=== PATIENT | male | born 1985 | race Caucasian/White ===

== ENCOUNTER 2025-05-05 12:17 | Inpatient (IN) | payer OTHER ==
[~2025-05-05] VITALS: Ht 167.6 cm; Wt 99.8 kg
[2025-05-05 12:24] VITALS: O2SAT 99
[2025-05-05 12:53] LABS: BASOPHILS % 0.4 % (0.0-2.0); EOSINOPHILS % 2.5 % (0.0-5.0); HEMATOCRIT. 53.0 % (42.0-52.0); HEMOGLOBIN. 18.9 g/dL (14.0-18.0); LYMPHOCYTES % 35.7 % (20.0-50.0); MEAN PLATELET VOLUME 7.8 fl (7.4-10.4); MONOCYTES % 4.7 % (2.0-8.0); NEUTROPHILS % 56.7 % (40.0-76.0); PLATELET 196 x1000/uL (130-400); RED BLOOD CELL COUNT 5.97 mill/uL (4.7-6.1); RED CELL DISTRIBUTION WIDTH 12.5 % (11.6-14.6)
[2025-05-05 13:13] LABS: CREATININE 1.0 mg/dL (0.6-1.3)
[2025-05-05 13:14] LABS: UREA NITROGEN BLOOD 16 mg/dL (9-23)
[2025-05-05 13:48] LABS: ETHANOL BLOOD 456 mg/dL (<10)
[2025-05-05] MEDS: SODIUM CHLORIDE 0.9% 1,000 ML IV ONE (14:22)
[2025-05-05] MEDS: ACETAMINOPHEN 500MG TABLET PO ONE (14:22)
[2025-05-05 14:40] LABS: ASPARTATE AMINOTRANSFERASE 448 IU/L (<34); BILIRUBIN DIRECT 0.5 mg/dL (<=3.0); BILIRUBIN TOTAL 1.3 mg/dL (0.1-1.0); PROTEIN TOTAL 7.9 g/dL (6.0-8.3)
[2025-05-05 16:40] VITALS: BP 126/81; PULSE 98; RESP 21; TEMP 35.4728
[2025-05-05 20:00] VITALS: BP 129/78; PULSE 113; RESP 18; TEMP 36.8; O2SAT 97
[2025-05-05] MEDS ORDERED: MAGNESIUM/ALUMINUM HYDROXIDE/SIMETHICONE 30ML UDC PO PRN (21:15)
[2025-05-05] MEDS ORDERED: DOCUSATE SODIUM 100MG CAPSULE PO PRN (21:15)
[2025-05-05] MEDS: SODIUM CHLORIDE 0.9% 1,000 ML IV SCH (22:00)
[2025-05-05] MEDS ORDERED: NALOXONE HCL 0.4MG/ML VIAL IV PRN (22:00)
[2025-05-05] MEDS: ONDANSETRON HCL 4MG/2ML INJ IV PRN (22:52)
[2025-05-06] VITALS: BP 115/84; PULSE 87; RESP 20; TEMP 36.6; O2SAT 98
[2025-05-06 03:45] LABS: BASOPHILS % 0.7 % (0.0-2.0); EOSINOPHILS % 2.2 % (0.0-5.0); HEMATOCRIT. 49.0 % (42.0-52.0); HEMOGLOBIN. 17.3 g/dL (14.0-18.0); LYMPHOCYTES % 31.4 % (20.0-50.0); MEAN PLATELET VOLUME 8.0 fl (7.4-10.4); MONOCYTES % 8.0 % (2.0-8.0); NEUTROPHILS % 57.7 % (40.0-76.0); PLATELET 182 x1000/uL (130-400); RED BLOOD CELL COUNT 5.58 mill/uL (4.7-6.1); RED CELL DISTRIBUTION WIDTH 12.6 % (11.6-14.6)
[2025-05-06 03:59] LABS: CREATININE 0.8 mg/dL (0.6-1.3)
[2025-05-06 04:00] VITALS: BP 120/76; PULSE 89; RESP 18; TEMP 36.7; O2SAT 98
[2025-05-06 04:00] LABS: CREATINE KINASE MB FRACTION 16.3 ng/mL (0.5-3.6); TROPONIN I HIGH SENSITIVITY 9 ng/L (3.0-53); UREA NITROGEN BLOOD 17 mg/dL (9-23)
[2025-05-06 04:02] LABS: PHOSPHORUS 3.5 mg/dL (2.5-4.9)
[2025-05-06] MEDS: ACETAMINOPHEN 325MG TABLET PO PRN (07:51)
[2025-05-06 08:00] VITALS: BP 126/81; PULSE 98; RESP 21; TEMP 37.8; O2SAT 98
[2025-05-06] MEDS ORDERED: MAGNESIUM/ALUMINUM HYDROXIDE/SIMETHICONE 30ML UDC PO PRN (10:45)
[2025-05-06] MEDS: HYDROCODONE/ACETAMINOPHEN 5/325MG TABLET PO PRN (10:59)
[2025-05-06 12:00] VITALS: BP 131/74; PULSE 83; RESP 18; TEMP 36.4; O2SAT 96
[2025-05-06 16:00] VITALS: BP 118/86; PULSE 84; RESP 18; TEMP 37; O2SAT 95
[2025-05-06 18:19] LABS: CREATINE KINASE MB FRACTION 17.5 ng/mL (0.5-3.6); TROPONIN I HIGH SENSITIVITY 13.0 ng/L (3.0-53)
[2025-05-06 20:00] VITALS: BP 156/98; PULSE 98; RESP 18; TEMP 37.6; O2SAT 98
[2025-05-06] MEDS ORDERED: CHLORDIAZEPOXIDE 5 MG CAPSULE PO SCH (23:45)
[2025-05-07] VITALS (7 sets, daily range): BP systolic 140–171; BP diastolic 87–115; PULSE 90–119; RESP 18–20; TEMP 36–37.2; O2SAT 97–100
[2025-05-07] MEDS: CHLORDIAZEPOXIDE 5 MG CAPSULE PO SCH (06:07)
[2025-05-07] MEDS: THIAMINE HCL 100MG TABLET PO SCH (08:49)
[2025-05-07] MEDS ORDERED: L10 PO (12:38)
[2025-05-07 13:56] LABS: BASOPHILS % 0.5 % (0.0-2.0); EOSINOPHILS % 1.9 % (0.0-5.0); HEMATOCRIT. 46.9 % (42.0-52.0); HEMOGLOBIN. 16.8 g/dL (14.0-18.0); LYMPHOCYTES % 22.4 % (20.0-50.0); MEAN PLATELET VOLUME 8.5 fl (7.4-10.4); MONOCYTES % 6.6 % (2.0-8.0); NEUTROPHILS % 68.6 % (40.0-76.0); PLATELET 165 x1000/uL (130-400); RED BLOOD CELL COUNT 5.37 mill/uL (4.7-6.1); RED CELL DISTRIBUTION WIDTH 12.4 % (11.6-14.6)
[2025-05-07 14:06] LABS: CREATININE 0.8 mg/dL (0.6-1.3); UREA NITROGEN BLOOD 7 mg/dL (9-23)
[2025-05-07 14:10] LABS: ASPARTATE AMINOTRANSFERASE 187 IU/L (<34); BILIRUBIN DIRECT 0.7 mg/dL (<=3.0); BILIRUBIN TOTAL 2.1 mg/dL (0.1-1.0); PROTEIN TOTAL 7.4 g/dL (6.0-8.3)
[2025-05-07] MEDS ORDERED: MAGNESIUM 2 G PREMIX 50 ML IV SCH (22:00)
[2025-05-08] VITALS: BP 143/99; PULSE 97; RESP 20; TEMP 36.4; O2SAT 98
[2025-05-08] MEDS ORDERED: LORAZEPAM 1MG TABLET PO PRN (00:18)
[2025-05-08 04:00] VITALS: BP 124/90; PULSE 101; RESP 20; TEMP 37.3; O2SAT 99
[2025-05-08] MEDS: MAGNESIUM 2 G PREMIX 50 ML IV SCH (06:38)
[2025-05-08 08:00] VITALS: BP 144/99; PULSE 102; RESP 18; TEMP 36.3; O2SAT 99
[2025-05-08 12:00] VITALS: BP 142/100; PULSE 104; RESP 20; TEMP 36.2; O2SAT 100
[2025-05-08 16:00] VITALS: BP 141/107; PULSE 58; RESP 20; TEMP 36.6; O2SAT 100
[2025-05-08 17:44] VITALS: BP 142/107; PULSE 110; TEMP 97.9
[2025-05-08] MEDS ORDERED: AMLO5TAB88 MT (18:21)
== END 2025-05-08 18:24 | disposition home or self-care (01) | DRG 441 ==
LOC: ER 13:12 → EDBEDREQ 15:08 → EDBEDREQTM 15:08 → ENRESERV 15:21 → 7WST 16:31 → EDBD 16:31 → 7WST 05-06 08:24
PROVIDERS: ADMIT Internal Medicine Nephrology; ATTEND Internal Medicine Nephrology
DX: K76.82 Hepatic encephalopathy (principal); G93.41 Metabolic encephalopathy; M62.82 Rhabdomyolysis; F10.229 Alcohol dependence with intoxication, unspecified; E66.9 Obesity, unspecified; E83.42 Hypomagnesemia; D63.8 Anemia in other chronic diseases classified elsewhere; Y90.8 Blood alcohol level of 240 mg/100 ml or more; Z68.35 Body mass index [BMI] 35.0-35.9, adult
CPT/HCPCS: 36415; 71045; 80048; 80076; 80320; 82550; 82553; 83735; 84100; 84484; 85025; 93005; 99285; A4606; J2060; J2405; J3475; J7030; G0480